=== PATIENT | female | born 1970 | race Caucasian/White ===

== ENCOUNTER 2021-03-05 14:27 | Inpatient (IN) | payer BC ==
[~2021-03-05] VITALS: Ht 170.2 cm; Wt 51.3 kg
[2021-03-05 16:15] VITALS: BP 120/76
[2021-03-05 17:00] VITALS: BP 120/76
[2021-03-05] MEDS ORDERED: ACETAMINOPHEN 325 MG TABLET PO PRN ×2 (17:45→18:15)
[2021-03-05] MEDS ORDERED: IPRATROPIUM BROMIDE 0.5 MG/2.5 ML NEB SOLUTION NEB PRN (18:00)
[2021-03-05] MEDS ORDERED: ALBUTEROL SULFATE 2.5 MG/0.5 ML NEB SOLUTION NEB PRN (18:00)
[2021-03-05] MEDS ORDERED: ACETAMINOPHEN 500 MG TABLET PO PRN (18:15)
[2021-03-05] MEDS: HydrOXYzine HCL 25 MG TABLET PO SCH ×2 (20:09→23:33)
[2021-03-05] MEDS: TAMSULOSIN HCL 0.4 MG CAPSULE PO SCH (20:09)
[2021-03-05] MEDS: MIRTAZAPINE 15 MG TABLET PO SCH (20:09)
[2021-03-05] MEDS: BusPIRone HCL 10 MG TABLET PO SCH (20:09)
[2021-03-05] MEDS: ETHYL ALCOHOL 62% ANTISEPTIC NASAL INHALANT 0.6 ML AMPUL NASAL SCH (20:10)
[2021-03-05] MEDS: RIFAXIMIN 550 MG TABLET PO SCH (20:10)
[2021-03-06] VITALS: BP 95/57
[2021-03-06] MEDS: PANTOPRAZOLE SODIUM 40 MG DR TABLET PO SCH ×2 (05:53→16:32)
[2021-03-06 06:53] LABS: BASOPHILS % (AUTO) 1.1 % (0.0-2.0); EOSINOPHILS % (AUTO) 3.2 % (1.0-6.0); HEMATOCRIT 26.7 % (36-46); LYMPHOCYTES # (AUTO) 1.1 K/uL (1.0-4.8); LYMPHOCYTES % (AUTO) 19.5 % (22.0-44.0); MEAN CORPUSCULAR HEMOGLOBIN 35.6 pg (26.0-34.0); MEAN CORPUSCULAR HGB CONC 33.5 G/dL (31.0-37.0); MEAN CORPUSCULAR VOLUME 106 fL (80-100); MONOCYTES # (AUTO) 0.6 K/uL (0.1-1.0); MONOCYTES % (AUTO) 11.1 % (2.0-9.0); NEUTROPHILS # (AUTO) 3.8 K/uL (1.8-7.7); NEUTROPHILS % (AUTO) 65.1 % (40.0-70.0); RED BLOOD CELL COUNT(AUTO) 2.51 MIL/uL (4.00-5.20); RED CELL DISTRIBUTION WIDTH 17.4 % (11.5-14.5)
[2021-03-06 07:14] LABS: ALANINE AMINOTRANSFERASE 18 U/L (12-78); ALBUMIN 1.7 g/dL (3.4-5.0); ALKALINE PHOSPHATASE 121 U/L (46-116); ANION GAP 5 mmol/L (8-16); ASPARTATE AMINOTRANSFERASE 31 U/L (15-37); BILIRUBIN,TOTAL 2.7 mg/dL (0.1-1.0); CALCIUM, TOTAL 8.1 mg/dL (8.8-10.5); CARBON DIOXIDE 25 mmol/L (22-29); CHLORIDE 109 mmol/L (98-107); CREATININE 0.58 mg/dL (0.60-1.30); GLOMERULAR FILTR. RATE CALC > 60 mL/min (>60); GLUCOSE,RANDOM 107 mg/dL (70-110); POTASSIUM 4.1 mmol/L (3.5-5.1); SODIUM SERUM 139 mmol/L (136-145); TOTAL PROTEIN, SERUM 5.9 g/dL (6.4-8.2); UREA NITROGEN, BLOOD 8 mg/dL (7-18)
[2021-03-06 08:48] LABS: PLATELET COUNT (AUTO) 99 K/uL (150-450)
[2021-03-06] MEDS: ETHYL ALCOHOL 62% ANTISEPTIC NASAL INHALANT 0.6 ML AMPUL NASAL SCH ×2 (09:49→20:27)
[2021-03-06] MEDS: MULTIVITAMINS, THERAPEUTIC TABLET PO SCH (09:49)
[2021-03-06 09:50] VITALS: BP 126/82
[2021-03-06] MEDS: THIAMINE 100 MG TABLET PO SCH (09:50)
[2021-03-06] MEDS: FOLIC ACID 1 MG TABLET PO SCH (09:53)
[2021-03-06] MEDS: HydrOXYzine HCL 25 MG TABLET PO SCH ×3 (09:53→23:28)
[2021-03-06] MEDS: SPIRONOLACTONE 50 MG TABLET PO SCH (09:53)
[2021-03-06] MEDS: BusPIRone HCL 10 MG TABLET PO SCH ×2 (09:53→20:28)
[2021-03-06] MEDS: RIFAXIMIN 550 MG TABLET PO SCH ×2 (09:53→20:27)
[2021-03-06] MEDS: FUROSEMIDE 40 MG TABLET PO SCH (09:53)
[2021-03-06] MEDS: LACTULOSE 20 GM/30 ML SOLUTION UDCUP PO SCH (09:54)
[2021-03-06 14:14] LABS: APPEARANCE,URINE CLOUDY (CLEAR); BILIRUBIN,URINE NEGATIVE (NEGATIVE); GLUCOSE, URINE (UA) NEGATIVE (NEGATIVE); KETONES,URINE NEGATIVE (NEGATIVE); LEUKOCYTE ESTERASE ,URINE MODERATE (NEGATIVE); NITRATE,URINE POSITIVE (NEGATIVE); OCCULT BLOOD,URINE SMALL (NEGATIVE); PH,URINE 7.5 (5.0-8.0); PROTEIN,URINE NEGATIVE (NEGATIVE); UROBILINOGEN,URINE 0.2 mg/dL (<=1.0)
[2021-03-06 14:17] LABS: BACTERIA,URINE Many /HPF (None Seen)
[2021-03-06 16:08] VITALS: BP 128/73
[2021-03-06] MEDS ORDERED: INFLUENZA VIRUS VACCINE QVS 2021-22 (6MO+)/PF 60 MCG/0.5 ML SYRINGE IM. ONE (16:45)
[2021-03-06] MEDS: TAMSULOSIN HCL 0.4 MG CAPSULE PO SCH (20:27)
[2021-03-06] MEDS: MIRTAZAPINE 15 MG TABLET PO SCH (20:28)
[2021-03-06] MEDS: NITROFURANTOIN/NITROFURAN MAC 100 MG CAPSULE [MACROBID] PO SCH (20:28)
[2021-03-06 23:30] VITALS: BP 109/65
[2021-03-07] MEDS: PANTOPRAZOLE SODIUM 40 MG DR TABLET PO SCH ×2 (06:05→15:58)
[2021-03-07 08:30] VITALS: BP 110/70
[2021-03-07] MEDS: LACTULOSE 20 GM/30 ML SOLUTION UDCUP PO SCH (08:46)
[2021-03-07] MEDS: ETHYL ALCOHOL 62% ANTISEPTIC NASAL INHALANT 0.6 ML AMPUL NASAL SCH ×2 (08:46→20:21)
[2021-03-07] MEDS: RIFAXIMIN 550 MG TABLET PO SCH ×2 (08:47→20:22)
[2021-03-07] MEDS: THIAMINE 100 MG TABLET PO SCH (08:48)
[2021-03-07] MEDS: BusPIRone HCL 10 MG TABLET PO SCH ×2 (08:48→20:22)
[2021-03-07] MEDS: HydrOXYzine HCL 25 MG TABLET PO SCH ×3 (08:49→23:14)
[2021-03-07] MEDS: SPIRONOLACTONE 50 MG TABLET PO SCH (08:49)
[2021-03-07] MEDS: NITROFURANTOIN/NITROFURAN MAC 100 MG CAPSULE [MACROBID] PO SCH ×2 (08:49→20:22)
[2021-03-07] MEDS: FOLIC ACID 1 MG TABLET PO SCH (08:50)
[2021-03-07] MEDS: MULTIVITAMINS, THERAPEUTIC TABLET PO SCH (08:53)
[2021-03-07] MEDS: FUROSEMIDE 40 MG TABLET PO SCH (08:54)
[2021-03-07 16:05] VITALS: BP 125/82
[2021-03-07] MEDS: TAMSULOSIN HCL 0.4 MG CAPSULE PO SCH (20:22)
[2021-03-07] MEDS: MIRTAZAPINE 15 MG TABLET PO SCH (20:22)
[2021-03-07 23:00] VITALS: BP 111/75
[2021-03-08] MEDS: PANTOPRAZOLE SODIUM 40 MG DR TABLET PO SCH ×2 (06:04→17:31)
[2021-03-08 07:26] VITALS: BP 120/80
[2021-03-08] MEDS: RIFAXIMIN 550 MG TABLET PO SCH ×2 (07:51→21:05)
[2021-03-08] MEDS: HydrOXYzine HCL 25 MG TABLET PO SCH ×2 (07:52→17:31)
[2021-03-08] MEDS: BusPIRone HCL 10 MG TABLET PO SCH ×2 (07:52→21:05)
[2021-03-08] MEDS: NITROFURANTOIN/NITROFURAN MAC 100 MG CAPSULE [MACROBID] PO SCH ×2 (07:52→21:05)
[2021-03-08] MEDS: THIAMINE 100 MG TABLET PO SCH (07:52)
[2021-03-08] MEDS: SPIRONOLACTONE 50 MG TABLET PO SCH (07:52)
[2021-03-08] MEDS: FOLIC ACID 1 MG TABLET PO SCH (07:52)
[2021-03-08] MEDS: ETHYL ALCOHOL 62% ANTISEPTIC NASAL INHALANT 0.6 ML AMPUL NASAL SCH ×2 (07:52→21:04)
[2021-03-08] MEDS: FUROSEMIDE 40 MG TABLET PO SCH (07:52)
[2021-03-08] MEDS: MULTIVITAMINS, THERAPEUTIC TABLET PO SCH (07:52)
[2021-03-08 10:30] VITALS: BP 120/80
[2021-03-08 16:08] VITALS: BP 122/80
[2021-03-08] MEDS: TAMSULOSIN HCL 0.4 MG CAPSULE PO SCH (21:05)
[2021-03-08] MEDS: MIRTAZAPINE 15 MG TABLET PO SCH (21:05)
[2021-03-09] MEDS: HydrOXYzine HCL 25 MG TABLET PO SCH ×4 (00:04→23:33)
[2021-03-09 01:15] VITALS: BP 103/57
[2021-03-09] MEDS: NITROFURANTOIN/NITROFURAN MAC 100 MG CAPSULE [MACROBID] PO SCH ×2 (08:19→21:30)
[2021-03-09] MEDS: SPIRONOLACTONE 50 MG TABLET PO SCH (08:19)
[2021-03-09] MEDS: RIFAXIMIN 550 MG TABLET PO SCH ×2 (08:19→21:31)
[2021-03-09] MEDS: FOLIC ACID 1 MG TABLET PO SCH (08:20)
[2021-03-09] MEDS: MULTIVITAMINS, THERAPEUTIC TABLET PO SCH (08:20)
[2021-03-09] MEDS: BusPIRone HCL 10 MG TABLET PO SCH ×2 (08:20→21:29)
[2021-03-09] MEDS: THIAMINE 100 MG TABLET PO SCH (08:20)
[2021-03-09] MEDS: ETHYL ALCOHOL 62% ANTISEPTIC NASAL INHALANT 0.6 ML AMPUL NASAL SCH ×2 (08:21→21:29)
[2021-03-09] MEDS: PANTOPRAZOLE SODIUM 40 MG DR TABLET PO SCH ×2 (08:21→16:23)
[2021-03-09] MEDS: FUROSEMIDE 40 MG TABLET PO SCH (08:21)
[2021-03-09 10:55] VITALS: BP 123/80
[2021-03-09 16:05] VITALS: BP 115/70
[2021-03-09] MEDS: MIRTAZAPINE 15 MG TABLET PO SCH (21:30)
[2021-03-09] MEDS: TAMSULOSIN HCL 0.4 MG CAPSULE PO SCH (21:30)
[2021-03-10] VITALS: BP 100/55
[2021-03-10] MEDS: PANTOPRAZOLE SODIUM 40 MG DR TABLET PO SCH ×2 (06:13→16:35)
[2021-03-10] MEDS: NITROFURANTOIN/NITROFURAN MAC 100 MG CAPSULE [MACROBID] PO SCH (08:01)
[2021-03-10] MEDS: RIFAXIMIN 550 MG TABLET PO SCH ×2 (08:01→20:37)
[2021-03-10] MEDS: FUROSEMIDE 40 MG TABLET PO SCH (08:01)
[2021-03-10] MEDS: TAMSULOSIN HCL 0.4 MG CAPSULE PO SCH ×2 (08:01→20:37)
[2021-03-10] MEDS: MULTIVITAMINS, THERAPEUTIC TABLET PO SCH (08:01)
[2021-03-10] MEDS: THIAMINE 100 MG TABLET PO SCH (08:02)
[2021-03-10] MEDS: FOLIC ACID 1 MG TABLET PO SCH (08:02)
[2021-03-10] MEDS: BusPIRone HCL 10 MG TABLET PO SCH ×2 (08:02→20:37)
[2021-03-10] MEDS: HydrOXYzine HCL 25 MG TABLET PO SCH ×3 (08:02→22:54)
[2021-03-10] MEDS: SPIRONOLACTONE 50 MG TABLET PO SCH (08:02)
[2021-03-10] MEDS: ETHYL ALCOHOL 62% ANTISEPTIC NASAL INHALANT 0.6 ML AMPUL NASAL SCH ×2 (08:09→20:37)
[2021-03-10 08:21] VITALS: BP 113/73
[2021-03-10] MEDS: AMOX TR/POT CLAV 500 MG/125 MG TABLET PO SCH ×2 (11:10→20:36)
[2021-03-10 16:00] VITALS: BP 123/77
[2021-03-10] MEDS: MIRTAZAPINE 15 MG TABLET PO SCH (20:37)
[2021-03-10 23:41] VITALS: BP 98/59
[2021-03-11] MEDS: PANTOPRAZOLE SODIUM 40 MG DR TABLET PO SCH ×2 (06:11→16:18)
[2021-03-11 07:57] LABS: ALANINE AMINOTRANSFERASE 16 U/L (12-78); ALBUMIN 2.1 g/dL (3.4-5.0); ALKALINE PHOSPHATASE 117 U/L (46-116); ANION GAP 7 mmol/L (8-16); ASPARTATE AMINOTRANSFERASE 29 U/L (15-37); BILIRUBIN,TOTAL 3.2 mg/dL (0.1-1.0); CALCIUM, TOTAL 8.5 mg/dL (8.8-10.5); CARBON DIOXIDE 24 mmol/L (22-29); CHLORIDE 109 mmol/L (98-107); GLOMERULAR FILTR. RATE CALC > 60 mL/min (>60); GLUCOSE,RANDOM 88 mg/dL (70-110); PHOSPHORUS 4.1 mg/dL (2.5-4.9); POTASSIUM 3.9 mmol/L (3.5-5.1); SODIUM SERUM 140 mmol/L (136-145); TOTAL PROTEIN, SERUM 6.8 g/dL (6.4-8.2); UREA NITROGEN, BLOOD 8 mg/dL (7-18)
[2021-03-11] MEDS: ETHYL ALCOHOL 62% ANTISEPTIC NASAL INHALANT 0.6 ML AMPUL NASAL SCH ×2 (07:57→20:40)
[2021-03-11] MEDS: MULTIVITAMINS, THERAPEUTIC TABLET PO SCH (07:57)
[2021-03-11] MEDS: TAMSULOSIN HCL 0.4 MG CAPSULE PO SCH ×2 (07:57→20:40)
[2021-03-11] MEDS: FUROSEMIDE 80 MG TABLET PO SCH (07:58)
[2021-03-11] MEDS: BusPIRone HCL 10 MG TABLET PO SCH ×2 (07:58→20:40)
[2021-03-11] MEDS: RIFAXIMIN 550 MG TABLET PO SCH ×2 (07:58→20:39)
[2021-03-11] MEDS: THIAMINE 100 MG TABLET PO SCH (07:58)
[2021-03-11] MEDS: FOLIC ACID 1 MG TABLET PO SCH (07:58)
[2021-03-11] MEDS: AMOX TR/POT CLAV 500 MG/125 MG TABLET PO SCH ×2 (07:58→20:40)
[2021-03-11] MEDS: HydrOXYzine HCL 25 MG TABLET PO SCH ×3 (07:59→23:40)
[2021-03-11] MEDS: SPIRONOLACTONE 50 MG TABLET PO SCH (07:59)
[2021-03-11 09:22] VITALS: BP 127/50
[2021-03-11 16:00] VITALS: BP 104/71
[2021-03-11] MEDS: MIRTAZAPINE 15 MG TABLET PO SCH (20:40)
[2021-03-12] VITALS: BP 105/67
[2021-03-12] MEDS: PANTOPRAZOLE SODIUM 40 MG DR TABLET PO SCH ×2 (06:23→16:26)
[2021-03-12] MEDS: ETHYL ALCOHOL 62% ANTISEPTIC NASAL INHALANT 0.6 ML AMPUL NASAL SCH ×2 (07:58→20:13)
[2021-03-12] MEDS: MULTIVITAMINS, THERAPEUTIC TABLET PO SCH (07:59)
[2021-03-12] MEDS: HydrOXYzine HCL 25 MG TABLET PO SCH ×3 (08:00→23:58)
[2021-03-12] MEDS: FUROSEMIDE 80 MG TABLET PO SCH (08:00)
[2021-03-12] MEDS: BusPIRone HCL 10 MG TABLET PO SCH ×2 (08:00→20:13)
[2021-03-12] MEDS: RIFAXIMIN 550 MG TABLET PO SCH ×2 (08:00→20:13)
[2021-03-12] MEDS: SPIRONOLACTONE 50 MG TABLET PO SCH (08:00)
[2021-03-12] MEDS: THIAMINE 100 MG TABLET PO SCH (08:00)
[2021-03-12] MEDS: FOLIC ACID 1 MG TABLET PO SCH (08:00)
[2021-03-12] MEDS: TAMSULOSIN HCL 0.4 MG CAPSULE PO SCH ×2 (08:07→20:13)
[2021-03-12 09:02] VITALS: BP 107/70
[2021-03-12] MEDS: AMOX TR/POT CLAV 500 MG/125 MG TABLET PO SCH ×2 (09:22→20:17)
[2021-03-12 16:03] VITALS: BP 119/73
[2021-03-12] MEDS: MIRTAZAPINE 15 MG TABLET PO SCH (20:13)
[2021-03-13 00:31] VITALS: BP 107/60
[2021-03-13] MEDS: PANTOPRAZOLE SODIUM 40 MG DR TABLET PO SCH ×2 (05:51→15:28)
[2021-03-13] MEDS: RIFAXIMIN 550 MG TABLET PO SCH ×2 (08:04→21:22)
[2021-03-13] MEDS: AMOX TR/POT CLAV 500 MG/125 MG TABLET PO SCH ×2 (08:04→20:53)
[2021-03-13] MEDS: THIAMINE 100 MG TABLET PO SCH (08:06)
[2021-03-13] MEDS: TAMSULOSIN HCL 0.4 MG CAPSULE PO SCH ×2 (08:06→20:53)
[2021-03-13] MEDS: FUROSEMIDE 80 MG TABLET PO SCH (08:06)
[2021-03-13] MEDS: SPIRONOLACTONE 50 MG TABLET PO SCH (08:06)
[2021-03-13] MEDS: FOLIC ACID 1 MG TABLET PO SCH (08:06)
[2021-03-13] MEDS: BusPIRone HCL 10 MG TABLET PO SCH ×2 (08:06→20:53)
[2021-03-13] MEDS: HydrOXYzine HCL 25 MG TABLET PO SCH ×3 (08:07→23:42)
[2021-03-13] MEDS: ETHYL ALCOHOL 62% ANTISEPTIC NASAL INHALANT 0.6 ML AMPUL NASAL SCH ×2 (08:07→20:52)
[2021-03-13] MEDS: MULTIVITAMINS, THERAPEUTIC TABLET PO SCH (08:07)
[2021-03-13 09:05] VITALS: BP 122/74
[2021-03-13 16:00] VITALS: BP 117/69
[2021-03-13] MEDS: MIRTAZAPINE 15 MG TABLET PO SCH (20:53)
[2021-03-13 23:54] VITALS: BP 108/50
[2021-03-14] MEDS: PANTOPRAZOLE SODIUM 40 MG DR TABLET PO SCH ×2 (06:07→15:56)
[2021-03-14] MEDS: RIFAXIMIN 550 MG TABLET PO SCH ×2 (08:13→20:35)
[2021-03-14] MEDS: THIAMINE 100 MG TABLET PO SCH (08:14)
[2021-03-14] MEDS: AMOX TR/POT CLAV 500 MG/125 MG TABLET PO SCH ×2 (08:14→20:35)
[2021-03-14] MEDS: BusPIRone HCL 10 MG TABLET PO SCH ×2 (08:14→20:35)
[2021-03-14] MEDS: MULTIVITAMINS, THERAPEUTIC TABLET PO SCH (08:14)
[2021-03-14] MEDS: FOLIC ACID 1 MG TABLET PO SCH (08:14)
[2021-03-14] MEDS: FUROSEMIDE 80 MG TABLET PO SCH (08:14)
[2021-03-14] MEDS: TAMSULOSIN HCL 0.4 MG CAPSULE PO SCH ×2 (08:15→20:34)
[2021-03-14] MEDS: SPIRONOLACTONE 50 MG TABLET PO SCH (08:15)
[2021-03-14] MEDS: HydrOXYzine HCL 25 MG TABLET PO SCH ×2 (08:15→15:56)
[2021-03-14] MEDS: ETHYL ALCOHOL 62% ANTISEPTIC NASAL INHALANT 0.6 ML AMPUL NASAL SCH ×2 (09:00→20:25)
[2021-03-14 10:00] VITALS: BP 123/78
[2021-03-14 15:55] VITALS: BP 122/69
[2021-03-14] MEDS: MIRTAZAPINE 15 MG TABLET PO SCH (20:35)
[2021-03-15] MEDS: HydrOXYzine HCL 25 MG TABLET PO SCH ×4 (00:25→23:11)
[2021-03-15 00:35] VITALS: BP 111/62
[2021-03-15] MEDS: PANTOPRAZOLE SODIUM 40 MG DR TABLET PO SCH ×2 (05:27→17:25)
[2021-03-15] MEDS: TAMSULOSIN HCL 0.4 MG CAPSULE PO SCH ×2 (08:05→20:20)
[2021-03-15] MEDS: FOLIC ACID 1 MG TABLET PO SCH (08:05)
[2021-03-15] MEDS: THIAMINE 100 MG TABLET PO SCH (08:05)
[2021-03-15] MEDS: AMOX TR/POT CLAV 500 MG/125 MG TABLET PO SCH ×2 (08:05→20:20)
[2021-03-15] MEDS: FUROSEMIDE 80 MG TABLET PO SCH (08:06)
[2021-03-15] MEDS: MULTIVITAMINS, THERAPEUTIC TABLET PO SCH (08:06)
[2021-03-15] MEDS: RIFAXIMIN 550 MG TABLET PO SCH ×2 (08:06→20:20)
[2021-03-15] MEDS: BusPIRone HCL 10 MG TABLET PO SCH ×2 (08:06→20:20)
[2021-03-15] MEDS: SPIRONOLACTONE 50 MG TABLET PO SCH (08:06)
[2021-03-15] MEDS: ETHYL ALCOHOL 62% ANTISEPTIC NASAL INHALANT 0.6 ML AMPUL NASAL SCH ×2 (08:07→20:21)
[2021-03-15 09:01] VITALS: BP 127/79
[2021-03-15 16:00] VITALS: BP 125/67
[2021-03-15] MEDS: MIRTAZAPINE 15 MG TABLET PO SCH (20:20)
[2021-03-16 00:43] VITALS: BP 119/64
[2021-03-16 04:45] LABS: APPEARANCE,URINE CLEAR (CLEAR); BILIRUBIN,URINE NEGATIVE (NEGATIVE); GLUCOSE, URINE (UA) NEGATIVE (NEGATIVE); KETONES,URINE NEGATIVE (NEGATIVE); LEUKOCYTE ESTERASE ,URINE NEGATIVE (NEGATIVE); NITRATE,URINE NEGATIVE (NEGATIVE); OCCULT BLOOD,URINE NEGATIVE (NEGATIVE); PROTEIN,URINE NEGATIVE (NEGATIVE); UROBILINOGEN,URINE 0.2 mg/dL (<=1.0)
[2021-03-16] MEDS: PANTOPRAZOLE SODIUM 40 MG DR TABLET PO SCH ×2 (06:23→16:52)
[2021-03-16] MEDS: RIFAXIMIN 550 MG TABLET PO SCH ×2 (08:28→20:10)
[2021-03-16] MEDS: FUROSEMIDE 80 MG TABLET PO SCH (08:28)
[2021-03-16] MEDS: BusPIRone HCL 10 MG TABLET PO SCH ×2 (08:28→20:10)
[2021-03-16] MEDS: MULTIVITAMINS, THERAPEUTIC TABLET PO SCH (08:28)
[2021-03-16] MEDS: TAMSULOSIN HCL 0.4 MG CAPSULE PO SCH ×2 (08:29→20:10)
[2021-03-16] MEDS: FOLIC ACID 1 MG TABLET PO SCH (08:29)
[2021-03-16] MEDS: SPIRONOLACTONE 50 MG TABLET PO SCH (08:29)
[2021-03-16] MEDS: HydrOXYzine HCL 25 MG TABLET PO SCH ×3 (08:29→23:53)
[2021-03-16] MEDS: THIAMINE 100 MG TABLET PO SCH (08:29)
[2021-03-16] MEDS: ETHYL ALCOHOL 62% ANTISEPTIC NASAL INHALANT 0.6 ML AMPUL NASAL SCH ×2 (08:30→20:10)
[2021-03-16 09:01] VITALS: BP 123/74
[2021-03-16] MEDS: ATENOLOL 25 MG TABLET PO SCH (11:34)
[2021-03-16 16:25] VITALS: BP 103/51
[2021-03-16] MEDS: MIRTAZAPINE 15 MG TABLET PO SCH (20:10)
[2021-03-17 00:08] VITALS: BP 98/59
[2021-03-17] MEDS: PANTOPRAZOLE SODIUM 40 MG DR TABLET PO SCH ×2 (06:27→17:11)
[2021-03-17] MEDS: ATENOLOL 25 MG TABLET PO SCH (08:10)
[2021-03-17] MEDS: SPIRONOLACTONE 50 MG TABLET PO SCH (08:10)
[2021-03-17] MEDS: ETHYL ALCOHOL 62% ANTISEPTIC NASAL INHALANT 0.6 ML AMPUL NASAL SCH ×2 (08:10→20:23)
[2021-03-17] MEDS: THIAMINE 100 MG TABLET PO SCH (08:11)
[2021-03-17] MEDS: RIFAXIMIN 550 MG TABLET PO SCH ×2 (08:11→20:24)
[2021-03-17] MEDS: TAMSULOSIN HCL 0.4 MG CAPSULE PO SCH ×2 (08:11→20:24)
[2021-03-17] MEDS: FOLIC ACID 1 MG TABLET PO SCH (08:11)
[2021-03-17] MEDS: FUROSEMIDE 80 MG TABLET PO SCH (08:11)
[2021-03-17] MEDS: HydrOXYzine HCL 25 MG TABLET PO SCH ×2 (08:12→17:11)
[2021-03-17] MEDS: MULTIVITAMINS, THERAPEUTIC TABLET PO SCH (08:12)
[2021-03-17] MEDS: BusPIRone HCL 10 MG TABLET PO SCH ×2 (08:12→20:24)
[2021-03-17 09:01] VITALS: BP 116/73
[2021-03-17 10:48] LABS: ALKALINE PHOSPHATASE 157 U/L (46-116); ANION GAP 10 mmol/L (8-16); CALCIUM, TOTAL 8.8 mg/dL (8.8-10.5); CARBON DIOXIDE 25 mmol/L (22-29); CHLORIDE 103 mmol/L (98-107); CREATININE 0.66 mg/dL (0.60-1.30); GLOMERULAR FILTR. RATE CALC > 60 mL/min (>60); GLUCOSE,RANDOM 161 mg/dL (70-110); POTASSIUM 4.5 mmol/L (3.5-5.1); SODIUM SERUM 138 mmol/L (136-145); UREA NITROGEN, BLOOD 16 mg/dL (7-18)
[2021-03-17 10:49] LABS: ALANINE AMINOTRANSFERASE 24 U/L (12-78); ALBUMIN 2.4 g/dL (3.4-5.0); ASPARTATE AMINOTRANSFERASE 43 U/L (15-37); THYROID STIMULATING HORMONE 2.97 uIU/mL (0.36-3.74); TOTAL PROTEIN, SERUM 8.2 g/dL (6.4-8.2)
[2021-03-17 10:50] LABS: BASOPHILS % (AUTO) 1.4 % (0.0-2.0); EOSINOPHILS % (AUTO) 3.2 % (1.0-6.0); HEMATOCRIT 31.3 % (36-46); HEMOGLOBIN 10.5 g/dL (12.0-16.0); LYMPHOCYTES # (AUTO) 1.2 K/uL (1.0-4.8); LYMPHOCYTES % (AUTO) 20.9 % (22.0-44.0); MEAN CORPUSCULAR HEMOGLOBIN 35.2 pg (26.0-34.0); MEAN CORPUSCULAR HGB CONC 33.4 G/dL (31.0-37.0); MEAN CORPUSCULAR VOLUME 105 fL (80-100); MONOCYTES # (AUTO) 0.4 K/uL (0.1-1.0); MONOCYTES % (AUTO) 7.3 % (2.0-9.0); NEUTROPHILS # (AUTO) 3.7 K/uL (1.8-7.7); NEUTROPHILS % (AUTO) 67.2 % (40.0-70.0); PLATELET COUNT (AUTO) 174 K/uL (150-450); RED BLOOD CELL COUNT(AUTO) 2.97 MIL/uL (4.00-5.20); RED CELL DISTRIBUTION WIDTH 14.6 % (11.5-14.5)
[2021-03-17 17:14] VITALS: BP 100/60
[2021-03-17] MEDS: MIRTAZAPINE 15 MG TABLET PO SCH (20:24)
[2021-03-18] MEDS: HydrOXYzine HCL 25 MG TABLET PO SCH ×4 (00:20→23:24)
[2021-03-18 00:34] VITALS: BP 93/58
[2021-03-18] MEDS: PANTOPRAZOLE SODIUM 40 MG DR TABLET PO SCH ×2 (06:05→16:50)
[2021-03-18] MEDS: ETHYL ALCOHOL 62% ANTISEPTIC NASAL INHALANT 0.6 ML AMPUL NASAL SCH ×2 (08:12→20:21)
[2021-03-18] MEDS: SPIRONOLACTONE 50 MG TABLET PO SCH (08:13)
[2021-03-18] MEDS: TAMSULOSIN HCL 0.4 MG CAPSULE PO SCH ×2 (08:14→20:21)
[2021-03-18] MEDS: FUROSEMIDE 80 MG TABLET PO SCH (08:14)
[2021-03-18] MEDS: BusPIRone HCL 10 MG TABLET PO SCH ×2 (08:14→20:21)
[2021-03-18] MEDS: FOLIC ACID 1 MG TABLET PO SCH (08:14)
[2021-03-18] MEDS: THIAMINE 100 MG TABLET PO SCH (08:15)
[2021-03-18] MEDS: ATENOLOL 25 MG TABLET PO SCH (08:15)
[2021-03-18] MEDS: MULTIVITAMINS, THERAPEUTIC TABLET PO SCH (08:15)
[2021-03-18] MEDS: RIFAXIMIN 550 MG TABLET PO SCH ×2 (08:15→20:21)
[2021-03-18 09:12] VITALS: BP 117/75
[2021-03-18 15:30] VITALS: BP 114/65
[2021-03-18] MEDS: MIRTAZAPINE 15 MG TABLET PO SCH (20:21)
[2021-03-18 23:51] VITALS: BP 112/63
[2021-03-19] MEDS: ETHYL ALCOHOL 62% ANTISEPTIC NASAL INHALANT 0.6 ML AMPUL NASAL SCH ×2 (07:33→20:31)
[2021-03-19] MEDS: MULTIVITAMINS, THERAPEUTIC TABLET PO SCH (07:34)
[2021-03-19] MEDS: BusPIRone HCL 10 MG TABLET PO SCH ×2 (07:34→20:31)
[2021-03-19] MEDS: FOLIC ACID 1 MG TABLET PO SCH (07:34)
[2021-03-19] MEDS: SPIRONOLACTONE 50 MG TABLET PO SCH (07:34)
[2021-03-19] MEDS: THIAMINE 100 MG TABLET PO SCH (07:34)
[2021-03-19] MEDS: RIFAXIMIN 550 MG TABLET PO SCH ×2 (07:34→20:31)
[2021-03-19] MEDS: PANTOPRAZOLE SODIUM 40 MG DR TABLET PO SCH ×2 (07:34→16:42)
[2021-03-19] MEDS: FUROSEMIDE 80 MG TABLET PO SCH (07:34)
[2021-03-19] MEDS: ATENOLOL 25 MG TABLET PO SCH (07:35)
[2021-03-19] MEDS: TAMSULOSIN HCL 0.4 MG CAPSULE PO SCH ×2 (07:35→20:31)
[2021-03-19] MEDS: HydrOXYzine HCL 25 MG TABLET PO SCH ×3 (07:36→23:05)
[2021-03-19 09:01] VITALS: BP 129/75
[2021-03-19 16:11] VITALS: BP 109/65
[2021-03-19] MEDS: MIRTAZAPINE 15 MG TABLET PO SCH (20:31)
[2021-03-20 01:45] VITALS: BP 106/63
[2021-03-20] MEDS: RIFAXIMIN 550 MG TABLET PO SCH ×2 (08:16→21:00)
[2021-03-20] MEDS: THIAMINE 100 MG TABLET PO SCH (08:16)
[2021-03-20] MEDS: HydrOXYzine HCL 25 MG TABLET PO SCH ×3 (08:16→23:58)
[2021-03-20] MEDS: ATENOLOL 25 MG TABLET PO SCH (08:16)
[2021-03-20] MEDS: BusPIRone HCL 10 MG TABLET PO SCH ×2 (08:16→21:00)
[2021-03-20] MEDS: TAMSULOSIN HCL 0.4 MG CAPSULE PO SCH ×2 (08:16→21:00)
[2021-03-20] MEDS: FOLIC ACID 1 MG TABLET PO SCH (08:16)
[2021-03-20] MEDS: MULTIVITAMINS, THERAPEUTIC TABLET PO SCH (08:16)
[2021-03-20] MEDS: PANTOPRAZOLE SODIUM 40 MG DR TABLET PO SCH ×2 (08:16→16:10)
[2021-03-20] MEDS: SPIRONOLACTONE 50 MG TABLET PO SCH (08:17)
[2021-03-20] MEDS: FUROSEMIDE 80 MG TABLET PO SCH (08:17)
[2021-03-20] MEDS: ETHYL ALCOHOL 62% ANTISEPTIC NASAL INHALANT 0.6 ML AMPUL NASAL SCH ×2 (08:17→20:59)
[2021-03-20 09:05] VITALS: BP 119/79
[2021-03-20 16:02] VITALS: BP 99/55
[2021-03-20] MEDS: MIRTAZAPINE 15 MG TABLET PO SCH (21:00)
[2021-03-21] VITALS: BP 97/55
[2021-03-21] MEDS: PANTOPRAZOLE SODIUM 40 MG DR TABLET PO SCH ×2 (06:12→15:50)
[2021-03-21] MEDS: TAMSULOSIN HCL 0.4 MG CAPSULE PO SCH ×2 (08:05→21:33)
[2021-03-21] MEDS: SPIRONOLACTONE 50 MG TABLET PO SCH (08:05)
[2021-03-21] MEDS: FOLIC ACID 1 MG TABLET PO SCH (08:05)
[2021-03-21] MEDS: THIAMINE 100 MG TABLET PO SCH (08:06)
[2021-03-21] MEDS: ETHYL ALCOHOL 62% ANTISEPTIC NASAL INHALANT 0.6 ML AMPUL NASAL SCH ×2 (08:06→21:33)
[2021-03-21] MEDS: HydrOXYzine HCL 25 MG TABLET PO SCH ×3 (08:06→23:45)
[2021-03-21] MEDS: BusPIRone HCL 10 MG TABLET PO SCH ×2 (08:06→21:33)
[2021-03-21] MEDS: MULTIVITAMINS, THERAPEUTIC TABLET PO SCH (08:06)
[2021-03-21] MEDS: ATENOLOL 25 MG TABLET PO SCH (08:06)
[2021-03-21] MEDS: FUROSEMIDE 80 MG TABLET PO SCH (08:06)
[2021-03-21] MEDS: RIFAXIMIN 550 MG TABLET PO SCH ×2 (08:06→21:33)
[2021-03-21 09:17] VITALS: BP 120/77
[2021-03-21 15:19] VITALS: BP 110/72
[2021-03-21] MEDS: MIRTAZAPINE 15 MG TABLET PO SCH (21:33)
[2021-03-21 23:51] VITALS: BP 97/48
[2021-03-22] MEDS: PANTOPRAZOLE SODIUM 40 MG DR TABLET PO SCH ×2 (06:05→16:36)
[2021-03-22 06:52] LABS: ALANINE AMINOTRANSFERASE 30 U/L (12-78); ALBUMIN 2.3 g/dL (3.4-5.0); ALKALINE PHOSPHATASE 162 U/L (46-116); ANION GAP 4 mmol/L (8-16); ASPARTATE AMINOTRANSFERASE 48 U/L (15-37); BILIRUBIN,TOTAL 1.6 mg/dL (0.1-1.0); CALCIUM, TOTAL 8.9 mg/dL (8.8-10.5); CARBON DIOXIDE 26 mmol/L (22-29); CHLORIDE 106 mmol/L (98-107); GLOMERULAR FILTR. RATE CALC > 60 mL/min (>60); GLUCOSE,RANDOM 120 mg/dL (70-110); POTASSIUM 4.5 mmol/L (3.5-5.1); SODIUM SERUM 136 mmol/L (136-145); TOTAL PROTEIN, SERUM 7.6 g/dL (6.4-8.2); UREA NITROGEN, BLOOD 22 mg/dL (7-18)
[2021-03-22] MEDS: BusPIRone HCL 10 MG TABLET PO SCH ×2 (08:44→20:00)
[2021-03-22] MEDS: ATENOLOL 25 MG TABLET PO SCH (08:44)
[2021-03-22] MEDS: HydrOXYzine HCL 25 MG TABLET PO SCH ×3 (08:44→23:16)
[2021-03-22] MEDS: ETHYL ALCOHOL 62% ANTISEPTIC NASAL INHALANT 0.6 ML AMPUL NASAL SCH ×2 (08:44→20:01)
[2021-03-22] MEDS: TAMSULOSIN HCL 0.4 MG CAPSULE PO SCH (08:44)
[2021-03-22] MEDS: SPIRONOLACTONE 50 MG TABLET PO SCH (08:44)
[2021-03-22] MEDS: FOLIC ACID 1 MG TABLET PO SCH (08:44)
[2021-03-22] MEDS: THIAMINE 100 MG TABLET PO SCH (08:44)
[2021-03-22] MEDS: RIFAXIMIN 550 MG TABLET PO SCH ×2 (08:44→20:00)
[2021-03-22] MEDS: MULTIVITAMINS, THERAPEUTIC TABLET PO SCH (08:45)
[2021-03-22] MEDS: FUROSEMIDE 80 MG TABLET PO SCH (08:46)
[2021-03-22 09:54] VITALS: BP 117/76
[2021-03-22 15:34] VITALS: BP 108/70
[2021-03-22] MEDS: MIRTAZAPINE 15 MG TABLET PO SCH (20:00)
[2021-03-23 00:22] VITALS: BP 106/59
[2021-03-23] MEDS: PANTOPRAZOLE SODIUM 40 MG DR TABLET PO SCH (05:24)
[2021-03-23] MEDS: SPIRONOLACTONE 50 MG TABLET PO SCH (08:11)
[2021-03-23] MEDS: FUROSEMIDE 80 MG TABLET PO SCH (08:11)
[2021-03-23] MEDS: ETHYL ALCOHOL 62% ANTISEPTIC NASAL INHALANT 0.6 ML AMPUL NASAL SCH ×2 (08:12→20:16)
[2021-03-23] MEDS: BusPIRone HCL 10 MG TABLET PO SCH ×2 (08:12→20:16)
[2021-03-23] MEDS: THIAMINE 100 MG TABLET PO SCH (08:12)
[2021-03-23] MEDS: FOLIC ACID 1 MG TABLET PO SCH (08:12)
[2021-03-23] MEDS: MULTIVITAMINS, THERAPEUTIC TABLET PO SCH (08:12)
[2021-03-23] MEDS: HydrOXYzine HCL 25 MG TABLET PO SCH (08:12)
[2021-03-23] MEDS: ATENOLOL 25 MG TABLET PO SCH (08:12)
[2021-03-23] MEDS: RIFAXIMIN 550 MG TABLET PO SCH ×2 (08:12→20:16)
[2021-03-23 08:47] VITALS: BP 122/76
[2021-03-23 16:01] VITALS: BP 92/60
[2021-03-23] MEDS: FAMOTIDINE 20 MG TABLET PO SCH (17:01)
[2021-03-23] MEDS: MIRTAZAPINE 15 MG TABLET PO SCH (20:16)
[2021-03-23] MEDS: HydrOXYzine HCL 25 MG TABLET PO PRN (20:18)
[2021-03-24] VITALS: BP 97/65
[2021-03-24] MEDS ORDERED: MULT-413 PO (03:20)
[2021-03-24] MEDS ORDERED: THIA100T80 PO (03:20)
[2021-03-24] MEDS ORDERED: BUSP10TA23 PO (03:20)
[2021-03-24] MEDS ORDERED: RIFAX550 PO (03:20)
[2021-03-24] MEDS ORDERED: ATEN-73 PO (03:20)
[2021-03-24] MEDS ORDERED: MIRT-89 PO (03:20)
[2021-03-24] MEDS ORDERED: SPIR50TA27 PO (03:20)
[2021-03-24] MEDS ORDERED: FAMO20 PO (03:20)
[2021-03-24] MEDS ORDERED: FOLI0.4T6 PO (03:20)
[2021-03-24] MEDS ORDERED: FURO80 PO (03:20)
[2021-03-24] MEDS: FAMOTIDINE 20 MG TABLET PO SCH ×2 (05:57→16:23)
[2021-03-24] MEDS: ETHYL ALCOHOL 62% ANTISEPTIC NASAL INHALANT 0.6 ML AMPUL NASAL SCH ×2 (07:42→20:53)
[2021-03-24] MEDS: BusPIRone HCL 10 MG TABLET PO SCH ×2 (07:43→20:53)
[2021-03-24] MEDS: ATENOLOL 25 MG TABLET PO SCH (07:43)
[2021-03-24] MEDS: MULTIVITAMINS, THERAPEUTIC TABLET PO SCH (07:43)
[2021-03-24] MEDS: THIAMINE 100 MG TABLET PO SCH (07:43)
[2021-03-24] MEDS: SPIRONOLACTONE 50 MG TABLET PO SCH (07:43)
[2021-03-24] MEDS: RIFAXIMIN 550 MG TABLET PO SCH ×2 (07:43→20:53)
[2021-03-24] MEDS: FOLIC ACID 1 MG TABLET PO SCH (07:43)
[2021-03-24] MEDS: FUROSEMIDE 80 MG TABLET PO SCH (07:43)
[2021-03-24 08:01] VITALS: BP 117/82
[2021-03-24 15:14] VITALS: BP 110/70
[2021-03-24] MEDS: MIRTAZAPINE 15 MG TABLET PO SCH (20:53)
[2021-03-25 04:09] VITALS: BP 103/63
[2021-03-25] MEDS: FAMOTIDINE 20 MG TABLET PO SCH ×2 (06:27→16:45)
[2021-03-25] MEDS: ETHYL ALCOHOL 62% ANTISEPTIC NASAL INHALANT 0.6 ML AMPUL NASAL SCH ×2 (08:19→20:32)
[2021-03-25] MEDS: RIFAXIMIN 550 MG TABLET PO SCH ×2 (08:19→20:31)
[2021-03-25] MEDS: THIAMINE 100 MG TABLET PO SCH (08:19)
[2021-03-25] MEDS: FUROSEMIDE 80 MG TABLET PO SCH (08:19)
[2021-03-25] MEDS: SPIRONOLACTONE 50 MG TABLET PO SCH (08:19)
[2021-03-25] MEDS: BusPIRone HCL 10 MG TABLET PO SCH ×2 (08:20→20:31)
[2021-03-25] MEDS: FOLIC ACID 1 MG TABLET PO SCH (08:20)
[2021-03-25] MEDS: ATENOLOL 25 MG TABLET PO SCH (08:20)
[2021-03-25] MEDS: MULTIVITAMINS, THERAPEUTIC TABLET PO SCH (08:20)
[2021-03-25 09:54] VITALS: BP 118/76
[2021-03-25 16:06] VITALS: BP 101/63
[2021-03-25] MEDS: MIRTAZAPINE 15 MG TABLET PO SCH (20:31)
[2021-03-26] VITALS: BP 109/61
[2021-03-26] MEDS: FAMOTIDINE 20 MG TABLET PO SCH ×2 (06:04→16:46)
[2021-03-26] MEDS: RIFAXIMIN 550 MG TABLET PO SCH ×2 (07:47→21:12)
[2021-03-26] MEDS: MULTIVITAMINS, THERAPEUTIC TABLET PO SCH (07:47)
[2021-03-26] MEDS: ETHYL ALCOHOL 62% ANTISEPTIC NASAL INHALANT 0.6 ML AMPUL NASAL SCH ×2 (07:47→21:13)
[2021-03-26] MEDS: BusPIRone HCL 10 MG TABLET PO SCH ×2 (07:48→21:13)
[2021-03-26] MEDS: ATENOLOL 25 MG TABLET PO SCH (07:48)
[2021-03-26] MEDS: FUROSEMIDE 80 MG TABLET PO SCH (07:48)
[2021-03-26] MEDS: SPIRONOLACTONE 50 MG TABLET PO SCH (07:48)
[2021-03-26] MEDS: THIAMINE 100 MG TABLET PO SCH (07:48)
[2021-03-26] MEDS: FOLIC ACID 1 MG TABLET PO SCH (07:48)
[2021-03-26 08:05] VITALS: BP 133/79
[2021-03-26 16:56] VITALS: BP 103/59
[2021-03-26] MEDS: HydrOXYzine HCL 25 MG TABLET PO PRN (21:12)
[2021-03-26] MEDS: MIRTAZAPINE 15 MG TABLET PO SCH (21:13)
[2021-03-27 02:35] VITALS: BP 107/63
[2021-03-27] MEDS: FUROSEMIDE 80 MG TABLET PO SCH (08:18)
[2021-03-27] MEDS: ETHYL ALCOHOL 62% ANTISEPTIC NASAL INHALANT 0.6 ML AMPUL NASAL SCH ×2 (08:18→20:28)
[2021-03-27] MEDS: THIAMINE 100 MG TABLET PO SCH (08:18)
[2021-03-27] MEDS: ATENOLOL 25 MG TABLET PO SCH (08:18)
[2021-03-27] MEDS: SPIRONOLACTONE 50 MG TABLET PO SCH (08:18)
[2021-03-27] MEDS: RIFAXIMIN 550 MG TABLET PO SCH ×2 (08:18→20:27)
[2021-03-27] MEDS: MULTIVITAMINS, THERAPEUTIC TABLET PO SCH (08:19)
[2021-03-27] MEDS: BusPIRone HCL 10 MG TABLET PO SCH ×2 (08:19→20:28)
[2021-03-27] MEDS: FOLIC ACID 1 MG TABLET PO SCH (08:19)
[2021-03-27] MEDS: FAMOTIDINE 20 MG TABLET PO SCH ×2 (08:19→17:02)
[2021-03-27 09:48] VITALS: BP 120/67
[2021-03-27 16:00] VITALS: BP 106/57
[2021-03-27] MEDS: MIRTAZAPINE 15 MG TABLET PO SCH (20:27)
[2021-03-28 01:11] VITALS: BP 101/67
[2021-03-28] MEDS: THIAMINE 100 MG TABLET PO SCH (07:44)
[2021-03-28] MEDS: ETHYL ALCOHOL 62% ANTISEPTIC NASAL INHALANT 0.6 ML AMPUL NASAL SCH ×2 (07:44→20:35)
[2021-03-28] MEDS: FAMOTIDINE 20 MG TABLET PO SCH ×2 (07:44→16:52)
[2021-03-28] MEDS: BusPIRone HCL 10 MG TABLET PO SCH ×2 (07:44→20:35)
[2021-03-28] MEDS: RIFAXIMIN 550 MG TABLET PO SCH ×2 (07:44→20:35)
[2021-03-28] MEDS: MULTIVITAMINS, THERAPEUTIC TABLET PO SCH (07:44)
[2021-03-28] MEDS: FOLIC ACID 1 MG TABLET PO SCH (07:45)
[2021-03-28] MEDS: SPIRONOLACTONE 50 MG TABLET PO SCH (07:45)
[2021-03-28] MEDS: FUROSEMIDE 80 MG TABLET PO SCH (07:45)
[2021-03-28] MEDS: ATENOLOL 25 MG TABLET PO SCH (07:45)
[2021-03-28 08:59] VITALS: BP 112/74
[2021-03-28 16:00] VITALS: BP 109/69
[2021-03-28] MEDS: MIRTAZAPINE 15 MG TABLET PO SCH (20:35)
[2021-03-28 23:27] VITALS: BP 103/61
[2021-03-29] MEDS: RIFAXIMIN 550 MG TABLET PO SCH ×2 (08:02→20:32)
[2021-03-29] MEDS: FOLIC ACID 1 MG TABLET PO SCH (08:03)
[2021-03-29] MEDS: SPIRONOLACTONE 50 MG TABLET PO SCH (08:03)
[2021-03-29] MEDS: BusPIRone HCL 10 MG TABLET PO SCH ×2 (08:03→20:31)
[2021-03-29] MEDS: ETHYL ALCOHOL 62% ANTISEPTIC NASAL INHALANT 0.6 ML AMPUL NASAL SCH ×2 (08:04→20:31)
[2021-03-29] MEDS: THIAMINE 100 MG TABLET PO SCH (08:04)
[2021-03-29] MEDS: MULTIVITAMINS, THERAPEUTIC TABLET PO SCH (08:04)
[2021-03-29] MEDS: FAMOTIDINE 20 MG TABLET PO SCH ×2 (08:04→16:23)
[2021-03-29] MEDS: FUROSEMIDE 80 MG TABLET PO SCH (08:04)
[2021-03-29] MEDS: ATENOLOL 25 MG TABLET PO SCH (08:04)
[2021-03-29 09:29] VITALS: BP 119/73
[2021-03-29 15:30] VITALS: BP 113/71
[2021-03-29] MEDS: MIRTAZAPINE 15 MG TABLET PO SCH (20:31)
[2021-03-30 01:30] VITALS: BP 112/63
[2021-03-30] MEDS: FAMOTIDINE 20 MG TABLET PO SCH ×2 (06:12→17:01)
[2021-03-30] MEDS: FOLIC ACID 1 MG TABLET PO SCH (08:39)
[2021-03-30] MEDS: FUROSEMIDE 80 MG TABLET PO SCH (08:40)
[2021-03-30] MEDS: SPIRONOLACTONE 50 MG TABLET PO SCH (08:40)
[2021-03-30] MEDS: MULTIVITAMINS, THERAPEUTIC TABLET PO SCH (08:40)
[2021-03-30] MEDS: THIAMINE 100 MG TABLET PO SCH (08:40)
[2021-03-30] MEDS: BusPIRone HCL 10 MG TABLET PO SCH ×2 (08:40→20:35)
[2021-03-30] MEDS: ETHYL ALCOHOL 62% ANTISEPTIC NASAL INHALANT 0.6 ML AMPUL NASAL SCH ×2 (08:40→20:35)
[2021-03-30] MEDS: ATENOLOL 25 MG TABLET PO SCH (08:40)
[2021-03-30] MEDS: RIFAXIMIN 550 MG TABLET PO SCH ×2 (08:41→20:35)
[2021-03-30 09:22] VITALS: BP 119/83
[2021-03-30 15:30] VITALS: BP 104/67
[2021-03-30] MEDS: MIRTAZAPINE 15 MG TABLET PO SCH (20:35)
[2021-03-31] VITALS: BP 102/56
[2021-03-31] MEDS: FAMOTIDINE 20 MG TABLET PO SCH ×2 (05:55→16:55)
[2021-03-31] MEDS: SPIRONOLACTONE 50 MG TABLET PO SCH (08:03)
[2021-03-31] MEDS: BusPIRone HCL 10 MG TABLET PO SCH ×2 (08:03→20:57)
[2021-03-31] MEDS: FOLIC ACID 1 MG TABLET PO SCH (08:03)
[2021-03-31] MEDS: ETHYL ALCOHOL 62% ANTISEPTIC NASAL INHALANT 0.6 ML AMPUL NASAL SCH ×2 (08:04→20:57)
[2021-03-31] MEDS: MULTIVITAMINS, THERAPEUTIC TABLET PO SCH (08:04)
[2021-03-31] MEDS: ATENOLOL 25 MG TABLET PO SCH (08:04)
[2021-03-31] MEDS: FUROSEMIDE 80 MG TABLET PO SCH (08:04)
[2021-03-31] MEDS: THIAMINE 100 MG TABLET PO SCH (08:04)
[2021-03-31] MEDS: RIFAXIMIN 550 MG TABLET PO SCH ×2 (08:04→20:57)
[2021-03-31 12:04] VITALS: BP 102/62
[2021-03-31 16:00] VITALS: BP 114/69
[2021-03-31] MEDS: MIRTAZAPINE 15 MG TABLET PO SCH (20:57)
[2021-04-01 01:20] VITALS: BP 99/56
[2021-04-01] MEDS: FAMOTIDINE 20 MG TABLET PO SCH (05:47)
[2021-04-01] MEDS ORDERED: FOLI-130 PO (07:53)
[2021-04-01] MEDS: FOLIC ACID 1 MG TABLET PO SCH (08:06)
[2021-04-01] MEDS: RIFAXIMIN 550 MG TABLET PO SCH (08:06)
[2021-04-01] MEDS: SPIRONOLACTONE 50 MG TABLET PO SCH (08:06)
[2021-04-01] MEDS: ATENOLOL 25 MG TABLET PO SCH (08:07)
[2021-04-01] MEDS: BusPIRone HCL 10 MG TABLET PO SCH (08:07)
[2021-04-01] MEDS: MULTIVITAMINS, THERAPEUTIC TABLET PO SCH (08:07)
[2021-04-01] MEDS: FUROSEMIDE 80 MG TABLET PO SCH (08:07)
[2021-04-01] MEDS: THIAMINE 100 MG TABLET PO SCH (08:07)
[2021-04-01] MEDS: ETHYL ALCOHOL 62% ANTISEPTIC NASAL INHALANT 0.6 ML AMPUL NASAL SCH (08:07)
[2021-04-01 08:39] VITALS: BP 128/74
== END 2021-04-01 10:00 | disposition home or self-care (01) | DRG 83 ==
LOC: 2WR 16:45
PROVIDERS: ADMIT Physical Medicine & Rehabilitation; ATTEND Physical Medicine & Rehabilitation
DX: S06.5X9A Traumatic subdural hemorrhage with loss of consciousness of unspecified duration, initial encounter (principal); E46 Unspecified protein-calorie malnutrition; Z68.1 Body mass index [BMI] 19.9 or less, adult; N39.0 Urinary tract infection, site not specified; F33.9 Major depressive disorder, recurrent, unspecified; D69.6 Thrombocytopenia, unspecified; K70.31 Alcoholic cirrhosis of liver with ascites; M21.372 Foot drop, left foot; R32 Unspecified urinary incontinence; F10.20 Alcohol dependence, uncomplicated; Z71.41 Alcohol abuse counseling and surveillance of alcoholic; R15.9 Full incontinence of feces; R49.0 Dysphonia; M25.552 Pain in left hip; Z83.3 Family history of diabetes mellitus; Z74.1 Need for assistance with personal care
CPT/HCPCS: 80053; 81001; 81003; 83735; 84100; 84443; 85025; 87077; 87081; 87086; 87186; 90686; 92507; 92610; 93970; 97110; 97112; 97116; 97162; 97166; 97530; 97535; 99366